=== PATIENT | female | born 1950 | race Caucasian/White ===

== ENCOUNTER 2024-03-28 23:16 | Inpatient (IN) | payer OTHER, MEDICARE ==
[2024-03-29] MEDS ORDERED: METOCLOPRAMIDE 10 MG/2mL INJ ONE (01:43)
[2024-03-29] MEDS ORDERED: ONDANSETRON 4 MG/2 ML VIAL ONE (01:43)
[2024-03-29] MEDS ORDERED: DIPHENOX/ATROP SULF 1 TAB PO ONE (01:44)
[2024-03-29] MEDS ORDERED: NA CHLORIDE 0.9% 1,000 ML ONE ×2 (01:44→02:27)
[2024-03-29 02:46] LABS: Absolute Eosinophils 0.1 K/uL (0-0.5); Basophils % 0.5 % (0-1.3)
[2024-03-29 02:54] LABS: AST/SGOT 18 U/L (15-37); Albumin 2.8 g/dL (3.4-5.0); Albumin/Globulin Ratio 0.9 (1.1-1.8); Alkaline Phosphatase 78 U/L (45-117); Anion Gap 9.2 mEq/L (5.0-15.0); BUN Blood Urea Nitrogen 12 mg/dL (7-18); Bicarbonate 23 mEq/L (21-32); Bilirubin Total 0.5 mg/dL (0.2-1.0); Globulin 3.2 g/dL (2.3-3.5); Glomerular Filtration Rate 82 ml/min (=/>90); Glucose Level 93 mg/dL (74-106); Lipase 27 U/L (13-75); Potassium 4.2 mEq/L (3.5-5.1); Sodium Level 135 mEq/L (136-145)
[2024-03-29 03:01] LABS: Absolute Basophils 0.1 K/uL (0-0.5); Absolute Lymphocytes (CBC) 3.3 K/uL (0.7-4.9); Absolute Monocytes 0.7 K/uL (0.1-1.3); Absolute Neutrophil 6.8 K/uL (1.8-8.0); Eosinophils % 1.2 % (0-4.4); Hematocrit 34.8 % (36.0-45.0); Hemoglobin 13.1 g/dL (12.0-15.0); Lymphocytes % 29.9 % (15.3-44.8); MCH 32.9 pg (27.0-35.0); MCHC 37.6 g/dL (32.0-36.0); MCV 87.4 fL (80-100); MPV 8.2 fL (7.6-11.3); Monocytes % 6.1 % (3.3-12.3); Neutrophils % 62.3 % (41.7-73.7); Nucleated Red Blood Cells % 0.1 % (0-0); Platelets 233 thou/uL (152-406); RBC Red Blood Cell Count 3.98 M/uL (3.86-4.86); Red Cell Distribution Width 15.4 % (12.1-15.2)
[2024-03-29 03:13] LABS: ALT/SGPT < 14 U/L (13-56)
[2024-03-29] MEDS ORDERED: PROMETHAZINE 25 MG TABLET ONE (03:39)
[2024-03-29] MEDS ORDERED: ACETAMINOPHEN 500 MG TAB ONE (03:39)
[2024-03-29] MEDS ORDERED: IBUPROFEN 400 MG TAB ONE (03:40)
[2024-03-29 04:02] LABS: Blood Morphology Comment NOT SEEN (NOT SEEN); Platelet Estimate ADEQ; White Blood Cell Scan OK (OK)
--- NOTE | 2024-03-29 05:53 | EDPHYS ---
Physician Documentation [facility] Name: Yesenia Serrano Age: 73 yrs Sex: Female : 1950 Arrival Date: 03/28/2024 Time: 23:16 Bed 4 Private MD: ED Physician Shahid Rivas HPI: 03/28 23:24 This 73 yrs old Female presents to ER via Unassigned with complaints of sp4 Vomiting . 03/29 05:01 73-year-old female with history of COPD and hypothyroidism presents with acute onset of sp4 fever nausea vomiting diarrhea starting in the last 24 hours.. 05:01 Patient arrived with EMS and distress secondary to vomiting. sp4 Historical: - Allergies: 03/28 23:35 No Known Allergies; vc1 - Home Meds: 03/29 08:06 famotidine 20 mg Oral tablet [Active]; potassium chloride 10 mEq Oral tablet, extended jl7 release [Active]; ropinirole 0.25 mg oral tablet [Active]; pantoprazole 40 mg oral tablet, delayed release (enteric coated) [Active]; levothyroxine 88 mcg tablet [Active]; gabapentin 100 mg oral capsule [Active]; - PMHx: 03/28 23:35 Chronic obstructive lung disease; Hypothyroidism; vc1 - PSHx: 23:35 None; vc1 - Immunization history:: Adult Immunizations unknown. - Infectious Disease History:: Denies. - Social history:: Smoking status: unknown. - Family history:: not pertinent. ROS: 03/29 05:01 Constitutional: Positive fever, positive nausea vomiting, positive diarrhea sp4 All other systems are negative, Exam: 05:01 Constitutional: This is a well developed, well nourished patient who is awake, sp4 actively vomiting on arrival febrile and ill-appearing Head/Face: Normocephalic, atraumatic. Eyes: Pupils equal round and reactive to light, extra-ocular motions intact. Lids and lashes normal. Conjunctiva and sclera are not injected. Cornea within normal limits. Periorbital areas with no swelling, redness, or edema. ENT: Nares patent. No nasal discharge, no septal abnormalities noted. Tympanic membranes are normal and external auditory canals are clear. Oropharynx with no redness, swelling, or masses, exudates, or evidence of obstruction, uvula midline. Mucous membranes moist. Neck: Trachea midline, no thyromegaly or masses palpated, and no cervical lymphadenopathy. Supple, full range of motion without nuchal rigidity, or vertebral point tenderness. Chest/axilla: Normal chest wall appearance and motion. Nontender with no deformity. No lesions are appreciated. Cardiovascular: Regular rate and rhythm with a normal S1 and S2. No gallops, murmurs, or rubs. Normal PMI, no JVD. No pulse deficits. Respiratory: Lungs have equal breath sounds bilaterally, clear to auscultation and percussion. No rales, rhonchi or wheezes noted. No increased work of breathing, no retractions or nasal flaring. Abdomen/GI: Soft, with normal bowel sounds. No distension or tympany. No guarding or rebound. No evidence of tenderness throughout. Back: No spinal tenderness. No costovertebral tenderness. Skin: Warm, dry with normal turgor. Normal color with no rashes, no lesions, and no evidence of cellulitis. MS/ Extremity: Pulses equal, no cyanosis. Neurovascular intact. Full, normal range of motion. Neuro: Awake and alert, GCS 15, oriented to person, place, time, and situation. Cranial nerves II-XII grossly intact. Motor strength 5/5 in all extremities. Sensory grossly intact. Psych: Awake, alert, with orientation to person, place and time. Behavior, mood, and affect are within normal limits 18:58 ECG was reviewed by the Attending Physician. EG at 0 722 normal sinus rhythm with sp4 first-degree AV block Vital Signs: 03/28 23:31 BP 111 / 63; Pulse 77; Resp 14; Temp 100.4; Pulse Ox 93% ; Weight 68.04 kg; vc1 03/29 01:17 BP 112 / 54; Pulse 73; Resp 14; Pulse Ox 95% ; vc1 03:10 BP 127 / 61; Pulse 76; Resp 14; Pulse Ox 96% ; vc1 03:13 Temp 102.4(O); vc1 05:00 BP 97 / 52; Pulse 84; Resp 18; Pulse Ox 94% ; cp4 06:00 BP 88 / 37; Pulse 76; Resp 21; Pulse Ox 96% ; vc1 06:00 Temp 98.6; vc1 06:28 BP 76 / 53; Pulse 73; Resp 21; Pulse Ox 100% ; vc1 07:00 BP 114 / 70; Pulse 76; Resp 20; Pulse Ox 99% ; vc1 07:30 BP 107 / 60; Pulse 78; jl7 08:00 BP 103 / 55; Pulse 73; Resp 19; Pulse Ox 97% ; bp 08:30 BP 130 / 60; Pulse 69; jl7 09:00 BP 143 / 67; Pulse 69; Resp 33; Temp 98.6; Pulse Ox 97% on 4 lpm NC; bp 09:30 BP 141 / 65; Pulse 72; Resp 17; Pulse Ox 98% on 4 lpm NC; jl7 Lorrie Coma Score: 05:01 Eye Response: spontaneous(4). Motor Response: obeys commands(6). Verbal Response: sp4 oriented(5). Total: 15. Procedures: 07:00 Central Line: the site was prepped with Betadine, in sterile fashion, a triple lumen sp4 catheter was inserted, in the left internal jugular vein, in 1 attempts. placement was verified, by CXR, by blood return, Ultrasound-guided central line, the site was dressed with 4X4s, Tegaderm, using sterile technique, the patient tolerated the procedure, well, Patient suddenly developed hypotension likely septic shock. Central line was placed for resuscitation. MDM: 00:52 Medical Screening Exam initiated sp4 04:56 ED course: IMPRESSION: 1. Bibasilar peripheral fibrotic changes and adjacent sp4 groundglass opacities, left greater than right (atelectasis and/or infiltrate). 2. Scattered bilateral pulmonary nodules measuring up to 4 mm. Per Fleischner Society Guidelines, if patient is low risk for malignancy, no routine follow-up imaging is recommended. If patient is high risk for malignancy, a non-contrast Chest CT at 12 months is optional. If performed and the nodule is stable at 12 months, no further follow-up is recommended. 3. Moderate stool. No bowel obstruction. 4. Other findings as above. Electronically signed by: Valarie Anderson MD 03/29/2024 03:14. 05:04 Differential diagnosis: Cholelithiasis, gastroesophageal reflux disease, GI Bleed, sp4 Hepatitis, Herpes Zoster, Irritable bowel syndrome. Data reviewed: vital signs, nurses notes, EMS record, lab test result(s), EKG, radiologic studies, CT scan, plain films. 05:04 Consideration of Admission/Observation Escalation of care including sp4 admission/observation considered. ED course: Patient's CAT scan reveals ground glass opacification left greater than right suggestive of acute pneumonia.. 05:51 ED course: Stable for admission. sp4 07:01 Management of patient was discussed with the following: Hospitalist: Admit team . ED sp4 course: Sepsis reevaluation complete up to sepsis dose of IV fluids, at least 30 mL/kg was administered IV including albumin then patient started on Levophed. Blood pressure has improved. 03/28 23:25 Order name: CBC with Diff; Complete Time: 04:55 sp4 03/28 23:25 Order name: CMP; Complete Time: 03:22 sp4 03/28 23:25 Order name: Lipase; Complete Time: 03:22 sp4 03/28 23:25 Order name: Urinalysis w/ reflexes; Complete Time: 08:07 sp4 03/28 23:29 Order name: Influenza Screen (a \T\ B); Complete Time: 01:09 sp4 03/29 04:02 Order name: CBC Smear Scan; Complete Time: 04:55 EDMS 03/29 05:03 Order name: Blood Culture Adult (2) sp4 03/29 05:03 Order name: Lactate w/ 2H reflex if indic.; Complete Time: 08:07 sp4 03/29 05:03 Order name: CRP; Complete Time: 08:07 sp4 03/29 05:03 Order name: TSH; Complete Time: 08:07 sp4 03/29 05:03 Order name: T4 Free; Complete Time: 08:07 sp4 03/29 06:00 Order name: SARS RAPID; Complete Time: 08:07 lg3 03/29 07:26 Order name: Urine Culture EDMS 03/29 08:32 Order name: Basic Metabolic Panel EDMS 03/29 08:32 Order name: Basic Metabolic Panel EDMS 03/29 08:32 Order name: Basic Metabolic Panel EDMS 03/29 08:32 Order name: Basic Metabolic Panel EDMS 03/29 08:32 Order name: Basic Metabolic Panel EDMS 03/29 08:32 Order name: Basic Metabolic Panel EDLA 03/29 08:32 Order name: Basic Metabolic Panel EDLA 03/29 08:32 Order name: Basic Metabolic Panel EDLA 03/29 08:32 Order name: CBC with Automated Diff EDMS 03/29 08:32 Order name: CBC with Automated Diff EDMS 03/29 08:32 Order name: CBC with Automated Diff EDMS 03/29 08:32 Order name: CBC with Automated Diff EDMS 03/29 08:32 Order name: CBC with Automated Diff EDMS 03/29 08:32 Order name: CBC with Automated Diff EDMS 03/29 08:32 Order name: CBC with Automated Diff EDMS 03/29 08:32 Order name: CBC with Automated Diff EDMS 03/29 08:32 Order name: Magnesium EDMS 03/29 08:32 Order name: Magnesium EDMS 03/29 08:32 Order name: Magnesium EDMS 03/29 08:32 Order name: Magnesium EDMS 03/29 08:32 Order name: Magnesium EDMS 03/29 08:32 Order name: Magnesium EDMS 03/29 08:32 Order name: Magnesium EDMS 03/29 08:32 Order name: Magnesium EDMS 03/29 08:32 Order name: Phosphorus EDMS 03/29 08:32 Order name: Phosphorus EDMS 03/29 08:32 Order name: Phosphorus EDMS 03/29 08:32 Order name: Phosphorus EDMS 03/29 08:32 Order name: Phosphorus EDMS 03/29 08:33 Order name: Phosphorus EDMS 03/29 08:33 Order name: Phosphorus EDMS 03/29 08:33 Order name: Phosphorus EDMS 03/29 01:36 Order name: Chest Abd Pelvis Wo Con; Complete Time: 18:56 EDMS 03/29 08:22 Order name: Chest Single View XRAY sp4 03/29 08:51 Order name: RAD; Complete Time: 18:56 EDMS 03/29 08:51 Order name: RAD; Complete Time: 18:56 EDMS 03/29 05:03 Order name: EKG; Complete Time: 05:03 sp4 03/29 08:32 Order name: Physical Therapy Consult EDMS 03/28 23:25 Order name: IV Saline Lock; Complete Time: 02:33 sp4 03/28 23:25 Order name: Labs collected and sent; Complete Time: 02:34 sp4 03/28 23:30 Order name: PO challenge; Complete Time: 02:35 sp4 03/29 05:03 Order name: EKG - Nurse/Tech; Complete Time: 07:27 sp4 03/29 06:12 Order name: Central Line Dressing Kit; Complete Time: 07:07 sp4 03/29 06:12 Order name: Central Line Kit; Complete Time: 07:07 sp4 03/29 06:12 Order name: Chlorhexidine prep; Complete Time: 07:07 sp4 03/29 06:12 Order name: Consent for central line completed; Complete Time: 07:07 sp4 03/29 06:12 Order name: Line Caps x3; Complete Time: 07:07 sp4 03/29 06:12 Order name: NS Flushes x3; Complete Time: 07:07 sp4 03/29 06:12 Order name: Sterile Gloves; Complete Time: 07:07 sp4 03/29 06:12 Order name: Sterile Probe Cover; Complete Time: 07: sp4 EC:22 Rate is 71 beats/min. Rhythm is regular, Sinus Rhythm. QRS [place] is Normal. [place] interval sp4 is prolonged. QRS interval is normal. QT interval is normal. No Q waves. T waves are Normal. No ST changes noted. Clinical impression: No evidence of ischemia. Interpreted by me. Reviewed by me. Administered Medications: 02:33 Drug: Ondansetron IVP 4 mg IVP once; over 2 minutes Route: IVP; Site: right forearm; vc1 03:00 Follow up: Response: No adverse reaction; Marked relief of symptoms vc1 02:33 Drug: NS 0.9% IV 1000 ml IV at 1 bolus Per protocol; to be given as a bolus over 60 vc1 minutes Route: IV; Rate: 1 bolus; Site: right forearm; 03:30 Follow up: IV Status: Completed infusion; IV Intake: 1000ml vc1 02:33 Drug: metoCLOPramide IVP 10 mg IVP once; over 1 to 2 minutes Route: IVP; Site: right vc1 forearm; 07:17 Follow up: Response: No adverse reaction; Marked relief of symptoms vc1 02:33 Drug: Diphenoxylate-Atropine PO 2 tabs PO once Route: PO; vc1 07:17 Follow up: Response: No adverse reaction; Marked relief of symptoms vc1 02:33 Drug: NS 0.9% IV 1000 ml IV at 250 ml/hr continuous Route: IV; Rate: 250 ml/hr; Site: vc1 right jugular; 07:17 Follow up: IV Status: Completed infusion; IV Intake: 1000ml vc1 03:48 Drug: Acetaminophen PO 1000 mg PO once Route: PO; vc1 04:00 Follow up: Response: No adverse reaction; Marked relief of symptoms vc1 03:48 Drug: Ibuprofen PO 800 mg PO once Route: PO; vc1 04:00 Follow up: Response: No adverse reaction; Marked relief of symptoms vc1 03:48 Drug: Promethazine PO 25 mg PO once Route: PO; vc1 04:00 Follow up: Response: No adverse reaction; Marked relief of symptoms vc1 06:08 Drug: D5-NS IV 1000 ml IV at 125 ml/hr continuous Route: IV; Rate: 125 ml/hr; Site: vc1 right jugular; 09:09 Follow up: IV Status: Infusion continued upon admission bp 06:08 Drug: Cefepime IVPB 2 grams IVPB at 200 ml/hr once over 30 mins; (mix in NS 100 mL) vc1 Route: IVPB; Rate: 200 ml/hr; Infused Over: 30 mins; Site: right hand; 06:38 Follow up: IV Status: Completed infusion; IV Intake: 100ml vc1 07:06 Drug: Albumin IVPB 25 grams 100 ml IVPB once; (Note: Albumin 25% concentration) Volume: vc1 100 ml; Route: IVPB; Site: right hand; 07:15 Follow up: IV Status: Completed infusion; IV Intake: 100ml vc1 07:07 Drug: MethylPrednisoLONE IVP 125 mg IVP once Route: IVP; Site: right hand; vc1 07:13 Follow up: Response: No adverse reaction vc1 07:07 Not Given (Physician Discretion): mupirocinointment 2 % 1 application Topical once vc1 07:08 Drug: vancoMYCIN IVPB 1.5 grams IVPB at calculated rate once Route: IVPB; Rate: vc1 calculated rate; Site: left jugular; 09:09 Follow up: IV Status: Completed infusion bp 07:30 Drug: Albumin IVPB 25 grams 100 ml IVPB once; (Note: Albumin 25% concentration) Volume: jl7 100 ml; Route: IVPB; Site: right hand; 09:09 Follow up: IV Status: Completed infusion bp Disposition Summary: 03/29/24 05:52 Hospitalization Ordered Notes: Hospitalization Status: Inpatient Admission sp4 Provider: Christiano Schumacher sp4 Condition: Stable sp4 Problem: new sp4 Symptoms: have improved sp4 Bed/Room Type: Standard sp4 Location: Intensive Care Unit(03/29/24 07:02) sp4 Room Assignment: 1-(03/29/24 08:43) sp Diagnosis - Pneumonia, unspecified organism sp4 - COPD/ Chronic obstructive pulmonary disease with (acute) exacerbation sp4 - Acute bilateral pneumonia sp4 - Severe sepsis with septic shock sp4 Forms: - Medication Reconciliation Form sp4 - SBAR form sp4 - Leadership Thank You Letter sp4 Critical care time excluding procedures: 07:22 Critical care time: Bedside Care: 36 minutes, Consultation: 12 minutes, Family sp4 Intervention: 12 minutes. Total time: 60 minutes Signatures: Dispatcher [employer] EDMS Carrie Taylor RN RN kl Barbara Griffin Jahala RN RN jl7 Jennifer Redding RN RN lg3 Kym Long RN RN vc1 Shahid Rivas MD MD sp4 Alexis Hicks RN bp Corrections: (The following items were deleted from the chart) 01:36 01:10 Chest Abdomen Pelvis W Con+CT.RAD.BRZ ordered. EDMS EDMS 05:59 05:52 sp4 kl 06:08 05:59 402 kl kl 06:11 06:08 220 kl lg3 06:35 06:11 402 lg3 kl 07:00 07:00 Chest Single View+RAD.RAD.BRZ ordered. EDMS EDMS 07:02 05:52 Telemetry/MedSurg (Inpatient) sp4 sp4 07:02 06:35 kl sp4 08:32 08:32 T4 Free ordered. EDMS EDMS 08:33 08:32 Thyroid Stimulating Hormone ordered. EDMS EDMS 08:43 07:02 sp4 sp
--- NOTE | 2024-03-29 05:53 | ER ---
Nurse's Notes [facility] Name: Yesenia Serrano Age: 73 yrs Sex: Female : 1950 Arrival Date: 03/28/2024 Time: 23:16 Bed 4 Private MD: Diagnosis: Pneumonia, unspecified organism;COPD/ Chronic obstructive pulmonary disease with (acute) exacerbation;Acute bilateral pneumonia;Severe sepsis with septic shock Presentation: 03/28 23:31 Chief complaint: EMS states: flu like symptoms that started yesterday and worsened vc1 today. N/V/D started today with some confusion. Coronavirus screen: Client denies travel out of the [place] in the last 14 days. diarrhea, fever, nausea, vomiting. Client presents with at least one sign or symptom that may indicate coronavirus-19. Ebola Screen: Patient negative for fever greater than or equal to 101.5 degrees Fahrenheit, and additional compatible Ebola Virus Disease symptoms Patient denies exposure to infectious person. Patient denies travel to an Ebola-affected area in the 21 days before illness onset. No symptoms or risks identified at this time. Initial Sepsis Screen: Does the patient meet any 2 criteria? No. Patient's initial sepsis screen is negative. Does the patient have a suspected source of infection? No. Patient's initial sepsis screen is negative. Risk Assessment: Do you want to hurt yourself or someone else? Patient reports no desire to harm self or others. Onset of symptoms was March 27, 2024. Care prior to arrival: Medication(s) given: zofran 4 mg, IV initiated. 22 GA, in the left hand. Activity prior to arrival: vomiting. Mechanism of Injury: No Mechanism of Injury. Transition of care: From out of state visiting her sister. 23:31 Method Of Arrival: EMS: [facility] vc1 23:31 Acuity: DANI 3 vc1 Triage Assessment: 23:30 General: Appears in no apparent distress. uncomfortable, ill, slender, Behavior is vc1 cooperative, fussy. Pain: Denies pain. EENT: No deficits noted. No signs and/or symptoms were reported regarding the EENT system. Neuro: Level of Consciousness is obeys commands, lethargic, Oriented to person, place, situation. Cardiovascular: Heart tones S1 S2 present Capillary refill < 3 seconds. Respiratory: Airway is patent Respiratory effort is even, unlabored, Respiratory pattern is regular, symmetrical, Breath sounds are clear bilaterally. GI: Reports diarrhea, nausea, vomiting. : No deficits noted. No signs and/or symptoms were reported regarding the genitourinary system. Derm: Skin is intact, is thin, Skin is dry, Skin is normal, Skin temperature is hot. Musculoskeletal: No deficits noted. Historical: - Allergies: 23:35 No Known Allergies; vc1 - Home Meds: 03/29 08:06 famotidine 20 mg Oral tablet [Active]; potassium chloride 10 mEq Oral tablet, extended jl7 release [Active]; ropinirole 0.25 mg oral tablet [Active]; pantoprazole 40 mg oral tablet, delayed release (enteric coated) [Active]; levothyroxine 88 mcg tablet [Active]; gabapentin 100 mg oral capsule [Active]; - PMHx: 03/28 23:35 Chronic obstructive lung disease; Hypothyroidism; vc1 - PSHx: 23:35 None; vc1 - Immunization history:: Adult Immunizations unknown. - Infectious Disease History:: Denies. - Social history:: Smoking status: unknown. - Family history:: not pertinent. Screenin:30 [facility] ED Fall Risk Assessment (Adult) History of falling in the last 3 months, vc1 including since admission No falls in past 3 months (0 pts) Confusion or Disorientation Yes (5 pts) Intoxicated or Sedated No (0 pts) Impaired Gait No (0 pts) Mobility Assist Device Used No (0 pt) Altered Elimination Yes (1 pt) Score/Fall Risk Level 3 or more points = High Risk Oriented to surroundings, Maintained a safe environment, Educated pt \T\ family on fall prevention, incl call for assistance when getting out of bed, Hourly rounding (assess needs \T\ fall precautionary measures) done, Utilized family, sitter, or virtual lead embedded software engineer as indicated. Abuse screen: Denies threats or abuse. Nutritional screening: No deficits noted. Tuberculosis screening: No symptoms or risk factors identified. Assessment: 03/29 03:10 Reassessment: Patient and/or family updated on plan of care and expected duration. Pain vc1 level reassessed. Patient is alert, oriented x 3, equal unlabored respirations, skin warm/dry/pink. Patient states symptoms have improved. 07:00 Reassessment: RECD REPORT FROM RAMON SANCHEZ. 73YO WF P/W SOB, RECENT FLU-LIKE S/S. ICU bp ADMIT IN PROCESS FOR PNEUMONIA. 09:07 Reassessment: REPORT TO ICU 1. bp Vital Signs: 03/28 23:31 BP 111 / 63; Pulse 77; Resp 14; Temp 100.4; Pulse Ox 93% ; Weight 68.04 kg; vc1 12/ 01:17 BP 112 / 54; Pulse 73; Resp 14; Pulse Ox 95% ; vc1 03:10 BP 127 / 61; Pulse 76; Resp 14; Pulse Ox 96% ; vc1 03:13 Temp 102.4(O); vc1 05:00 BP 97 / 52; Pulse 84; Resp 18; Pulse Ox 94% ; cp4 06:00 BP 88 / 37; Pulse 76; Resp 21; Pulse Ox 96% ; vc1 06:00 Temp 98.6; vc1 06:28 BP 76 / 53; Pulse 73; Resp 21; Pulse Ox 100% ; vc1 07:00 BP 114 / 70; Pulse 76; Resp 20; Pulse Ox 99% ; vc1 07:30 BP 107 / 60; Pulse 78; jl7 08:00 BP 103 / 55; Pulse 73; Resp 19; Pulse Ox 97% ; bp 08:30 BP 130 / 60; Pulse 69; jl7 09:00 BP 143 / 67; Pulse 69; Resp 33; Temp 98.6; Pulse Ox 97% on 4 lpm NC; bp 09:30 BP 141 / 65; Pulse 72; Resp 17; Pulse Ox 98% on 4 lpm NC; jl7 [place] Coma Score: 05:01 Eye Response: spontaneous(4). Motor Response: obeys commands(6). Verbal Response: sp4 oriented(5). Total: 15. ED Course: 03/28 23:23 Patient arrived in ED. vc1 23:24 Shahid Rivas MD is Attending Physician. sp4 23:30 Arm band placed on right wrist. vc1 23:30 Patient has correct armband on for positive identification. Bed in low position. Call vc1 light in reach. Side rails up X2. Adult w/ patient. Pulse ox on. NIBP on. 23:30 Maintain EMS IV. Dressing intact. Site clean \T\ dry. Gauge \T\ site: 22G left hand, no vc 1 blood return, flushed with 10 CC NS. 23:35 Triage completed. vc1 12 00:40 Inserted saline lock: 22 gauge in right forearm, using aseptic technique. ,using vc1 aseptic technique. unable to draw blood Flushed with 10 mL NS Missed attempt(s):. 01:51 Chest Abd Pelvis Wo Con In Process Unspecified. EDMS 02:32 Ramon Long, RN is Primary Nurse. vc1 02:35 Accessed Right EJ placed by Dr. Rivas, blood collected, flushed with 10CC NS. vc1 05:51 Christiano Schumacher is Hospitalizing Provider. sp4 06:39 Mckeon cath inserted, using sterile technique, 16 Fr., by ok, balloon inflated, to cp4 gravity drainage. 07:01 Urinalysis w/ reflexes Sent. vk 07:01 Urine collected: clean catch specimen, clear. vk 07:13 Assisted provider with central line placement. Set up central line tray. Triple lumen vc1 line placed in left internal jugular. Line placed by Shahid Rivas MD Placement verified by blood return, Dressed with Tegaderm, Blood was collected. Patient tolerated well. 08:10 Provided Education on: use of call camilo. jl7 09:08 Patient admitted, IV remains in place. bp Administered Medications: 02:33 Drug: Ondansetron IVP 4 mg IVP once; over 2 minutes Route: IVP; Site: right forearm; vc1 03:00 Follow up: Response: No adverse reaction; Marked relief of symptoms vc1 02:33 Drug: NS 0.9% IV 1000 ml IV at 1 bolus Per protocol; to be given as a bolus over 60 vc1 minutes Route: IV; Rate: 1 bolus; Site: right forearm; 03:30 Follow up: IV Status: Completed infusion; IV Intake: 1000ml vc1 02:33 Drug: metoCLOPramide IVP 10 mg IVP once; over 1 to 2 minutes Route: IVP; Site: right vc1 forearm; 07:17 Follow up: Response: No adverse reaction; Marked relief of symptoms vc1 02:33 Drug: Diphenoxylate-Atropine PO 2 tabs PO once Route: PO; vc1 07:17 Follow up: Response: No adverse reaction; Marked relief of symptoms vc1 02:33 Drug: NS 0.9% IV 1000 ml IV at 250 ml/hr continuous Route: IV; Rate: 250 ml/hr; Site: vc1 right jugular; 07:17 Follow up: IV Status: Completed infusion; IV Intake: 1000ml vc1 03:48 Drug: Acetaminophen PO 1000 mg PO once Route: PO; vc1 04:00 Follow up: Response: No adverse reaction; Marked relief of symptoms vc1 03:48 Drug: Ibuprofen PO 800 mg PO once Route: PO; vc1 04:00 Follow up: Response: No adverse reaction; Marked relief of symptoms vc1 03:48 Drug: Promethazine PO 25 mg PO once Route: PO; vc1 04:00 Follow up: Response: No adverse reaction; Marked relief of symptoms vc1 06:08 Drug: D5-NS IV 1000 ml IV at 125 ml/hr continuous Route: IV; Rate: 125 ml/hr; Site: vc1 right jugular; 09:09 Follow up: IV Status: Infusion continued upon admission bp 06:08 Drug: Cefepime IVPB 2 grams IVPB at 200 ml/hr once over 30 mins; (mix in NS 100 mL) vc1 Route: IVPB; Rate: 200 ml/hr; Infused Over: 30 mins; Site: right hand; 06:38 Follow up: IV Status: Completed infusion; IV Intake: 100ml vc1 07:06 Drug: Albumin IVPB 25 grams 100 ml IVPB once; (Note: Albumin 25% concentration) Volume: vc1 100 ml; Route: IVPB; Site: right hand; 07:15 Follow up: IV Status: Completed infusion; IV Intake: 100ml vc1 07:07 Drug: MethylPrednisoLONE IVP 125 mg IVP once Route: IVP; Site: right hand; vc1 07:13 Follow up: Response: No adverse reaction vc1 07:07 Not Given (Physician Discretion): mupirocinointment 2 % 1 application Topical once vc1 07:08 Drug: vancoMYCIN IVPB 1.5 grams IVPB at calculated rate once Route: IVPB; Rate: vc1 calculated rate; Site: left jugular; 09:09 Follow up: IV Status: Completed infusion bp 07:30 Drug: Albumin IVPB 25 grams 100 ml IVPB once; (Note: Albumin 25% concentration) Volume: jl7 100 ml; Route: IVPB; Site: right hand; 09:09 Follow up: IV Status: Completed infusion bp Medication: 03:17 VIS not applicable for this client. vc1 Intake: 03:30 IV: 1000ml; Total: 1000ml. vc1 06:38 IV: 100ml; Total: 1100ml. vc1 07:15 IV: 100ml; Total: 1200ml. vc1 07:17 IV: 1000ml; Total: 2200ml. vc1 Outcome: 05:52 Decision to Hospitalize by Provider. sp4 09:07 Admitted to ICU accompanied by nurse, via stretcher, room 1, with oxygen, with chart, bp 09:07 Condition: stable 09:07 Instructed on the need for admit, 09:48 Patient left the ED. bp Signatures: Dispatcher [employer] EDMS Melany Mathias RN RN [id number] Alexis Hicks RN RN Ramon Thakkar RN RN vc1 Shahid Rivas MD MD sp4 Chelsea Patrick Vivian vk
[2024-03-29] MEDS ORDERED: NA CHLORIDE 0.9% 500 ML ONE (05:59)
[2024-03-29] MEDS ORDERED: VANCOMYCIN 1 GM/VIAL ONE (05:59)
[2024-03-29] MEDS ORDERED: CEFEPIME 2 GM VIAL ONE (05:59)
[2024-03-29] MEDS ORDERED: METHYLPREDNISOLONE 125 MG INJ ONE (05:59)
[2024-03-29] MEDS ORDERED: VANCOMYCIN 500 MG/VIAL ONE (05:59)
[2024-03-29] MEDS ORDERED: D5 0.9 NS 1,000 ML IV ONE (06:00)
[2024-03-29] MEDS ORDERED: NA CHLORIDE 0.9% 100 ML ONE (06:00)
[2024-03-29] MEDS: ALBUMIN HUMAN 25% 200 ML IV ONE (06:13)
[2024-03-29] MEDS ORDERED: NOREPINEPHRINE BITARTRATE/D5W 4 MG/250 ML KIT IV ONE ×2 (06:15→09:15)
--- NOTE | 2024-03-29 06:41 | RAD REPORT ---
EXAM: CT Chest, Abdomen and Pelvis Without Intravenous Contrast CLINICAL HISTORY: Fever, vomiting. TECHNIQUE: Axial computed tomography images of the chest, abdomen and pelvis without intravenous contrast. Sag ittal and coronal reformatted images were created and reviewed. This CT exam was performed using one or more of the following dose reduction techniques: automated exposure control, adjustment of t he mA and/or kV according to patient size, and/or use of iterative reconstruction technique. COMPARISON: CT Abdomen Pelvis 07/10/[address] Chest 12/15/2020 (report only). FINDINGS: CHEST: Lungs: Mild background centrilobular emphysema. Scattered small pulmonary nodules within the bilate ral upper, right middle and right lower lobes. Index 4 mm right middle lobe nodule (series 201 image 37). Bibasilar peripheral fibrotic changes and adjacent groundglass opacities, left greater t maynard right. Pleural space: Unremarkable. No significant effusion. No pneumothorax. Heart: Coronary artery calcification. No cardiomegaly. No significant pericardial effusion. ABDOMEN: Liver: Unremarkable. Gallbladder and bile ducts: There has been a cholecystectomy. Mild biliary dilatation similar to the prior. Pancreas: Mild pancreatic parenchymal atrophy. No ductal dilation. Spleen: Unremarkable. No splenomegaly. Adrenals: Unremarkable. No mass. Kidneys and ureters: Unremarkable. No obstructing stones. No hydronephrosis. Stomach and bowel: Moderate stool. No bowel obstruction. No mucosal thickening. PELVIS: Appendix: The appendix is not definitively visualized. No findings to suggest acute appendicitis. Bladder: Unremarkable. No stones. Reproductive: There has been a hysterectomy. No adnexal cysts or masses are identified. CHEST, ABDOMEN and PELVIS: Intraperitoneal space: Unremarkable. No significant fluid collection. No free air. Bones/joints: Multilevel spondylosis. No acute fracture. Prior L4-L5 left hemilaminectomy. No dislocation. Soft tissues: Tiny fat-containing umbilical hernia. Interval left inguinal hernia repair. Vasculature: Moderate atherosclerotic disease. No aortic aneurysm. Lymph nodes: Unremarkable. No enlarged lymph nodes. Tubes, lines and devices: Right gluteal pulse generator with a lead terminating in the right presac ral region. IMPRESSION: 1. Bibasilar peripheral fibrotic changes and adjacent groundglass opacities, left greater than righ t (atelectasis and/or infiltrate). 2. Scattered bilateral pulmonary nodules measuring up to 4 mm. Per Fleischner Society Guidelines, i f patient is low risk for malignancy, no routine follow-up imaging is recommended. If patient is high risk for malignancy, a non-contrast Chest CT at 12 months is optional. If performed and the nodu le is stable at 12 months, no further follow-up is recommended. These guidelines do not apply to immunocompromised patients and patients with cancer. Follow up in patients with significant comorbidi ties as clinically warranted. For lung cancer screening, adhere to Lung-RADS guidelines. Reference: Radiology. 2017; 284(1):228-43. 3. Moderate stool. No bowel obstruction. 4. Other findings as above. Electronically signed by: Valarie Anderson MD 03/29/2024 03:14 AM [facility] Due to temporary technical issues with the PACS/[employer] reporting system, reports are being elyse d by the in-house radiologist without review as a courtesy to ensure prompt reporting the interpreting radiologist is fully responsible for the content of the report. Transcribed Date/Time: 03/29/2024 6:41 AM
[2024-03-29 06:59] LABS: SARS-CoV-2 Antigen CONTROL BLUE LINE VIS/BG OK; SARS-CoV-2 Antigen Rapid Res Negative (Negative)
[2024-03-29 07:21] LABS: Specific Gravity 1.019 (1.005-1.030); Sqamous Epithelial <5 /HPF (None Seen); Transitional Epithelial <5 /HPF (None Seen); Urine Bacteria <20 /HPF (<20); Urine Bilirubin NEGATIVE (Negative); Urine Blood Trace (Negative); Urine Clarity Turbid (Clear); Urine Color Light-Yellow (Yellow); Urine Culture Reflex Order REFLEXED; Urine Glucose NEGATIVE (Negative); Urine Ketones NEGATIVE (Negative); Urine Microscopic Reflex YN ORDER UMIC; Urine Mucus Slight /HPF (None Seen); Urine Nitrite NEGATIVE (Negative); Urine Protein NEGATIVE (Negative); Urine Urobilinogen Normal (Normal); Urine pH 5.5 (5.0-7.0)
[2024-03-29 07:40] LABS: C-Reactive Protein 57.9 mg/L (<3.00)
[2024-03-29 07:41] LABS: Thyroid Stimulating Hormone 8.21 uIU/mL (0.358-3.740)
[2024-03-29] MEDS ORDERED: ACETAMINOPHEN 650MG/RECT SUPP PR PRN (08:25)
--- NOTE | 2024-03-29 08:51 | RAD REPORT ---
EXAMINATION: ONE VIEW CHEST XR CLINICAL INDICATION: central line placement TECHNIQUE: Frontal chest projection is submitted. Examination is limited by patient positioning and t echnique. COMPARISON: No prior exam. FINDINGS: Left-sided central line is noted with its tip probably in the right brachiocephalic vein. No pneumoth orax seen. Lungs are mildly underinflated. The heart is upper limit of normal in size. Bilateral humeral head prosthesis.
--- NOTE | 2024-03-29 08:51 | RAD REPORT ---
EXAMINATION: ONE VIEW CHEST XR CLINICAL INDICATION: CVL repositioning ;Chest pain TECHNIQUE: Frontal chest projection is submitted. Examination is limited by patient positioning and t echnique. COMPARISON: Earlier exam same date. FINDINGS: Left-sided venous catheter has its tip in the SVC. The lungs are mildly underinflated but grossly charles ar. No pneumothorax is present. The heart is upper limit of normal in size. No displaced fractures identified.
[2024-03-29] MEDS: FLU (Fluarix Triv) TS24-25(6MOS UP)/PF 45 MCG/0.5 ML Syringe IM ONE (09:45)
[2024-03-29] MEDS: PNEUMOCOCCAL VACCINE 0.5 ML IMVAC ONE (10:00)
[2024-03-29 10:28] VITALS: BMI 27.7
[2024-03-29] MEDS: NOREPINEPHRINE 4 MG in D5W 250 ML IV SCH (10:32)
[2024-03-29] MEDS: VANCOMYCIN 500 MG in NA CHLORIDE 0.9% 100 ML IVPB ONE (11:30)
--- NOTE | 2024-03-29 11:33 | P.HP ---
Certification for Inpatient Patient admitted to: Inpatient With expected LOS: >2 Midnights Practitioner: I am a practitioner with admitting privileges, knowledge of patient current condition, hospital course, and medical plan of care. Services: Services provided to patient in accordance with Admission requirements found in Title 42 Section 412.3 of the Code of Federal Regulations Patient History Date of Service: 03/29/24 Reason for admission: Severe sepsis secondary to bilateral pneumonia History of Present Illness: Yesenia Serrano is a 73-year-old female with past medical history COPD and hypothyroidism who presents to the ED with chief complaint of fever, nausea, vomiting, diarrhea started last 24 hours. Family at bedside reports they walked in the mall on Saturday and she started to feel like a cold was coming on. Saturday night 10 PM she was ambulating to the bathroom and somewhat incoherent. She was brought to the emergency room at that time. Reportedly [facility] She sees pulmonology for COPD. While in the ED her blood pressure dropped to 76/53 requiring Levophed to be started. CT [facility] Reports "Scattered bilateral pulmonary nodules measuring up to 4 mm." Laboratory evaluation significant for C-reactive protein 57.9, TSH 8.2, and UA suggestive of infectious process. Of note, her a few months ago, she experienced weight loss with decreased p.o. intake. She has since recovered, regained her appetite, ambulating independently. CT CAP reports "Bibasilar peripheral fibrotic changes and adjacent groundglass opacities, left greater than right (atelectasis and/or infiltrate). Scattered bilateral pulmonary nodules measuring up to 4 mm. Prior L4-L5 left hemilaminectomy. No dislocation." Yesenia will be admitted to hospitalist service for further evaluation and treatment of severe sepsis secondary to bilateral pneumonia. Allergies No Known Allergies Allergy (Verified 03/29/24 10:14) Home Medications: Famotidine [Pepcid] 20 mg PO DAILY 03/29/24 Gabapentin [Neurontin] 100 mg PO DAILY 03/29/24 Gabapentin [Neurontin] 200 mg PO BEDTIME 03/29/24 Levothyroxine [Synthroid] 88 mcg PO [id number] 03/29/24 Pantoprazole Sodium [Protonix] 40 mg PO DAILY 03/29/24 Potassium Chloride [K-Dur] 10 meq PO DAILY 03/29/24 Ropinirole HCl [Requip] 0.25 mg PO BEDTIME 03/29/24 - Past Medical/Surgical History -: Hypothyroidism -: COPD Past Surgical History: Unable to obtain - Family History Father History Unknown: Yes Mother -: Heart disease, Hypertension, Diabetes, Cancer - Social History Smoking Status: Former smoker Alcohol use: No CD- Drugs: No Review of Systems is unable to be obtained Physical Examination - Vital Signs Temperature: 97.7 F Blood Pressure: 131/66 Pulse: 68 Respirations: 14 Pulse Ox (%): 99 - Physical Exam General: Other (lethargic) HEENT: Atraumatic, Normocephalic Neck: Supple, 2+ carotid pulse no bruit Respiratory: Expiratory wheezes Cardiovascular: Normal pulses, Regular rate/rhythm, Normal S1 S2, Systolic murmur (hudson) Capillary refill: <2 Seconds Gastrointestinal: Normal bowel sounds, Soft and benign, Non-distended, No tenderness Musculoskeletal: No clubbing Integumentary: No rashes Neurological: Other (lethargic) - Studies Laboratory Data (last 24 hrs) 03/29/24 03/29/24 02:21 02:21 WBC 10.90 Hgb 13.1 Hct 34.8 L Plt Count 233 Sodium 135 L Potassium 4.2 BUN 12 Creatinine 0.76 Glucose 93 Total Bilirubin 0.5 AST 18 ALT < 14 Alkaline Phosphatase 78 Lipase 27 Microbiology Data (last 24 hrs): 03/29/24 00:11 Nasopharnyx Influenza Type A Antigen Screen - Final 03/29/24 00:11 Nasopharnyx Influenza Type B Antigen Screen - Final Assessment and Plan - Plan Assessment and plan Severe sepsis secondary to bilateral pneumonia History of COPD -Sepsis criteria blood pressure 78/53, temperature 100.4, respirations 33, pneumonia -CT CAP reports "Bibasilar peripheral fibrotic changes and adjacent groundglass opacities, left greater than right (atelectasis and/or infiltrate). Scattered bilateral pulmonary nodules measuring up to 4 mm. Prior L4-L5 left hemilaminectomy. No dislocation." -C-reactive protein 57.9 -levophed gtt -merrem and vancomycin -IVF -oxygen protocol -Family reports pneumonia yearly, she sees a [facility] in [place] for her COPD UTI -UA leukocyte esterase 500 -IV antibiotics Hypothyroidism COPD -TSH/free T4 8.210/0.96 -Continue home medication -Follow-up outpatient DVT PPx Lovenox Full code LOS 2 days Discharge Plan: Home Plan to discharge in: 48 Hours - Advance Directives Does patient have a Living Will: No Does patient have a Durable POA for Healthcare: No
[2024-03-29] MEDS: Meropenem 1,000 MG in NA CHLORIDE 0.9% 100 ML IV SCH (12:17)
[2024-03-29] MEDS: D5 0.45 NS 1,000 ML IV SCH (15:06)
[2024-03-29] MEDS: ENOXAPARIN 40 MG/0.4 ML SQ SCH (17:31)
[2024-03-30] MEDS: VANCOMYCIN 1.5 GM in NA CHLORIDE 0.9% 500 ML IVPB SCH (00:29)
[2024-03-30 04:46] LABS: Anion Gap 8.3 mEq/L (5.0-15.0); Magnesium 1.9 mg/dL (1.6-2.4); Potassium 3.3 mEq/L (3.5-5.1)
[2024-03-30 05:02] LABS: Absolute Lymphocytes (CBC) 0.5 K/uL (0.7-4.9); Absolute Monocytes 0.2 K/uL (0.1-1.3); Absolute Neutrophil 3.9 K/uL (1.8-8.0); Basophils % 0.1 % (0-1.3); Hematocrit 32.4 % (36.0-45.0); Hemoglobin 11.1 g/dL (12.0-15.0); Lymphocytes % 11.4 % (15.3-44.8); MCH 30.9 pg (27.0-35.0); MCHC 34.3 g/dL (32.0-36.0); MPV 7.8 fL (7.6-11.3); Monocytes % 4.9 % (3.3-12.3); Neutrophils % 83.6 % (41.7-73.7); Nucleated Red Blood Cells % 0.2 % (0-0); Platelets 166 thou/uL (152-406); Red Cell Distribution Width 13.9 % (12.1-15.2)
[2024-03-30] MEDS: KCL 20 MEQ/100 mL IVPB 20 MEQ/100 ML BAG IV SCH (05:43)
[2024-03-30] MEDS: IPRATROPIUM BROM 0.5MG/2.5ML NEB SCH (08:04)
[2024-03-30] MEDS ORDERED: FAMOTIDINE 20 MG TAB PO SCH (09:00)
[2024-03-30] MEDS: PANTOPRAZOLE 40MG TABLET PO SCH (09:06)
[2024-03-30] MEDS: POTASSIUM CL SA 10 MEQ TAB PO SCH (09:06)
--- NOTE | 2024-03-30 18:44 | P.PN ---
Date of Service: 03/30/24 Subjective Awake and feeling much better She does not recall coming to the emergency room or going to ICU She is alert and oriented this a.m. Weaned off Levophed drip overnight, transferred to the floor ROS 10 point ROS as noted above, otherwise negative Physical Exam General: Awake, alert, oriented x 3, no acute distress HEENT: Atraumatic, Normocephalic Neck: Supple, 2+ carotid pulse no bruit Respiratory: Clear BBS, nonlabored breathing, on room air Cardiovascular: RRR, Normal S1 S2, Systolic murmur (hudson) Capillary refill: <2 Seconds Gastrointestinal: Normal bowel sounds, Soft and benign on palpation, Non- distended, No tenderness Musculoskeletal: No clubbing Integumentary: No rashes Neurological: Grossly afocal Vitals Reviewed Problem list Severe sepsis secondary to bilateral pneumonia History of COPD UTI Hypothyroidism COPD Assessment and Plan Severe sepsis secondary to bilateral pneumonia History of COPD -Sepsis criteria blood pressure 78/53, temperature 100.4, respirations 33, pneumonia -CT CAP reports "Bibasilar peripheral fibrotic changes and adjacent groundglass opacities, left greater than right (atelectasis and/or infiltrate). Scattered bilateral pulmonary nodules measuring up to 4 mm. Prior L4-L5 left hemilaminectomy. No dislocation." -C-reactive protein 57.9 -levophed gtt, off -vancomycin, stopped Merrem 03/30 -Follow blood culture -Incentive spirometer -IVF -oxygen protocol -Family reports pneumonia yearly, she sees a order packer or packager in [place] for her COPD UTI -UA leukocyte esterase 500 -IV antibiotics -Follow urine culture Hypothyroidism COPD -TSH/free T4 8.210/0.96 -Continue home medication -Follow-up outpatient DVT PPx Lovenox Full code LOS 2 days Discharge Plan: Home Plan to discharge in: 48 Hours
[2024-03-30 19:14] LABS: Potassium 3.4 mEq/L (3.5-5.1)
[2024-03-30] MEDS: VANCOMYCIN 1.5 GM in NA CHLORIDE 0.9% 500 ML IV SCH (19:44)
[2024-03-30] MEDS: ROPINIROLE HCL 0.25 MG TAB PO SCH (19:44)
[2024-03-30 21:45] VITALS: O2SAT 98
[2024-03-31] MEDS: KCL 20 MEQ/100 mL IVPB 20 MEQ/100 ML BAG IV SCH (00:14)
[2024-03-31] MEDS: LOPERAMIDE HCL 2 MG CAPSULE PO ONE (01:40)
[2024-03-31 05:04] LABS: Absolute Eosinophils 0.1 K/uL (0-0.5); Absolute Lymphocytes (CBC) 1.3 K/uL (0.7-4.9); Absolute Monocytes 0.3 K/uL (0.1-1.3); Absolute Neutrophil 2.9 K/uL (1.8-8.0); Basophils % 0.3 % (0-1.3); Eosinophils % 2.1 % (0-4.4); Hematocrit 32.6 % (36.0-45.0); Hemoglobin 11.3 g/dL (12.0-15.0); MCH 31.1 pg (27.0-35.0); MCHC 34.5 g/dL (32.0-36.0); MCV 90.1 fL (80-100); MPV 7.6 fL (7.6-11.3); Monocytes % 6.8 % (3.3-12.3); Neutrophils % 62.8 % (41.7-73.7); Nucleated Red Blood Cells % 0.2 % (0-0); Platelets 188 thou/uL (152-406); RBC Red Blood Cell Count 3.62 M/uL (3.86-4.86); Red Cell Distribution Width 13.8 % (12.1-15.2)
[2024-03-31 05:08] LABS: Anion Gap 8.2 mEq/L (5.0-15.0); Magnesium 1.8 mg/dL (1.6-2.4); Phosphorus 2.2 mg/dL (2.5-4.9); Potassium 4.2 mEq/L (3.5-5.1)
[2024-03-31] MEDS: LEVOTHYROXINE SOD 0.088 MG TAB PO SCH (05:11)
[2024-03-31] MEDS: SODIUM PHOSPHATE 15 MM in NA CHLORIDE 0.9% 250 ML IV ONE ×2 (05:57→08:01)
[2024-03-31 09:20] VITALS: TEMP 97.3
[2024-03-31] MEDS: levoFLOXacin 750 MG TAB PO SCH (10:05)
[2024-03-31 13:09] VITALS: BP 122/66
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
== END 2024-03-31 14:17 | disposition home or self-care (01) | DRG 871 ==
LOC: ER 23:16 → 3RD-ICU 03-29 08:25 → 2ND 03-30 11:24
PROVIDERS: ADMIT Internal Medicine; ATTEND Hospitalist
PROC: 02HV33Z Insertion of Infusion Device into Superior Vena Cava, Percutaneous Approach (ICD-10-PCS; principal; 2024-03-29)
PROC: 3E043XZ Introduction of Vasopressor into Central Vein, Percutaneous Approach (ICD-10-PCS; 2024-03-29)
DX: A41.9 Sepsis, unspecified organism (principal); J18.9 Pneumonia, unspecified organism; J44.0 Chronic obstructive pulmonary disease with (acute) lower respiratory infection; J44.1 Chronic obstructive pulmonary disease with (acute) exacerbation; N39.0 Urinary tract infection, site not specified; R65.20 Severe sepsis without septic shock; E03.9 Hypothyroidism, unspecified; R09.02 Hypoxemia; R06.03 Acute respiratory distress; Z11.52 Encounter for screening for COVID-19; Z79.890 Hormone replacement therapy; Z79.899 Other long term (current) drug therapy; Z87.891 Personal history of nicotine dependence
CPT/HCPCS: 36415; 36556; 51702; 71045; 71250; 74176; 80048; 80053; 80202; 81001; 82947; 83605; 83690; 83735; 84100; 84132; 84145; 84439; 84443; 85025; 86140; 87040; 87086; 87088; 87804; 87811; 94010; 94640; 97161; 99285; J0692; J1650; J2185; J2405; J2765; J2919; J3480; J7030; J7040; J7042; J7050; J7060; J7644; J7799; P9047; Q0169